=== PATIENT | female | born 1965 | race Caucasian/White ===

== ENCOUNTER → 2020-06-10 | Outpatient (CLI) | payer OTHER ==
[~2020-06-10] MED LIST: ASCO-184 PO; CALC1CAP8 PO; CETI10CA PO; DIPH-419 PO; TRAZ50TA66 PO; VIT500TA3 PO; [UNRECOGNIZED DRUG - MIXTURE] PO
== END | disposition home or self-care (01) ==
LOC: STAR 12:35
PROVIDERS: ATTEND Orthopaedic Surgery Hand Surgery
DX: Z20.828 Contact with and (suspected) exposure to other viral communicable diseases (principal); G56.01 Carpal tunnel syndrome, right upper limb
CPT/HCPCS: 87635

== ENCOUNTER 2020-06-16 05:34 | Day surgery (SDC) | payer OTHER ==
[~2020-06-16] VITALS: Ht 177.8 cm; Wt 87.8 kg
[2020-06-16 06:10] VITALS: BP 101/69
[2020-06-16] MEDS ORDERED: BUPIVACAINE/PF 0.5% ONE (06:11)
[2020-06-16] MEDS ORDERED: EPINEPHRINE 1 MG/ML, 1ML ONE (06:12)
[2020-06-16] MEDS ORDERED: LIDOCAINE/PF 1%, 30ML ONE ×2 (06:12)
[2020-06-16] MEDS ORDERED: CHLORHEXIDINE 15 ML UDC MM ONE (06:30)
[2020-06-16] MEDS ORDERED: LACTATED RINGERS 1,000 ML IV SCH (06:30)
[2020-06-16] MEDS ORDERED: FENTANYL PF 100 MCG/2ML ONE (06:41)
[2020-06-16] MEDS ORDERED: MIDAZOLAM 1 MG/ML, 2ML ONE (06:41)
[2020-06-16] MEDS ORDERED: PROPOFOL 10 MG/ML, 20ML ONE (06:59)
[2020-06-16] MEDS ORDERED: MEPERIDINE/PF 25MG/0.5ML IVPush PRN (07:00)
[2020-06-16] MEDS ORDERED: OXYcodone 5 MG/5 ML ORAL.SOL UDC PO PRN (07:00)
[2020-06-16] MEDS ORDERED: ACETAMINOPHEN 325 MG TABLET PO PRN (07:00)
[2020-06-16] MEDS ORDERED: PROMETHAZINE 25 MG/ML, 1ML IVPush PRN (07:00)
[2020-06-16] MEDS ORDERED: HYDROmorphone 1 MG/ML, 1ML INJ IVPush PRN (07:00)
[2020-06-16] MEDS ORDERED: FENTANYL PF 100 MCG/2ML IV PRN (07:00)
[2020-06-16] MEDS ORDERED: ONDANSETRON 2MG/ML, 2ML IVPush PRN (07:00)
[2020-06-16] MEDS ORDERED: DIAZEPAM 5 MG/ML, 2ML IVPush PRN (07:00)
[2020-06-16] MEDS ORDERED: DIPHENHYDRAMINE 50 MG/ML, 1ML IVPush PRN (07:00)
== END 2020-06-16 08:45 | disposition home or self-care (01) ==
LOC: OR 05:34
PROVIDERS: ATTEND Orthopaedic Surgery Hand Surgery
DX: G56.01 Carpal tunnel syndrome, right upper limb (principal); M18.10 Unilateral primary osteoarthritis of first carpometacarpal joint, unspecified hand; Z79.1 Long term (current) use of non-steroidal anti-inflammatories (NSAID); Z79.891 Long term (current) use of opiate analgesic; Z79.899 Other long term (current) drug therapy
CPT/HCPCS: 64721; J0171; J2250; J2704; J3010; J7120